=== PATIENT | male | born 1950 | race Caucasian/White ===

== ENCOUNTER 2017-01-10 22:45 | Inpatient (IN) | END 2017-01-15 17:00 | disposition home or self-care (01) | DRG 419 | DX: K80.00 Calculus of gallbladder with acute cholecystitis without obstruction (principal); I10 Essential (primary) hypertension; E87.6 Hypokalemia; E66.9 Obesity, unspecified; Z68.34 Body mass index [BMI] 34.0-34.9, adult; K76.9 Liver disease, unspecified; Z87.891 Personal history of nicotine dependence ==